=== PATIENT | female | born 1965 | race Caucasian/White ===

== ENCOUNTER → 2017-04-14 | Outpatient (CLI) | payer BC ==
[~2017-04-14] MED LIST: CALC1CAP8 PO; CHOL200024 PO; FERR-46 PO
[2017-04-14 16:30] LABS: HEMATOCRIT 37.4 % (34.6-47.8); HEMOGLOBIN 12.5 g/dL (11.7-16.4); WHITE BLOOD COUNT 8.2 x10^3/uL (3.4-10)
== END | disposition home or self-care (01) ==
LOC: STAR 15:26
PROVIDERS: ATTEND Specialist
DX: N39.3 Stress incontinence (female) (male) (principal)
CPT/HCPCS: 36415; 84703; 85025

== ENCOUNTER 2017-04-28 06:31 | Day surgery (SDC) | payer BC ==
[~2017-04-28] VITALS: Ht 175.3 cm; Wt 75.2 kg
[2017-04-28 06:55] VITALS: BP 108/72
[2017-04-28] MEDS ORDERED: ESTROGENS CONJUGATED VAG CRM 0.625MG/1G, 30GM ONE (07:01)
[2017-04-28 07:06] LABS: HCG UR LOT HCG7030192
[2017-04-28 07:09] LABS: HCG UR OBC PASS
[2017-04-28] MEDS: LACTATED RINGERS 1,000 ML IV SCH (07:13)
[2017-04-28] MEDS ORDERED: MIDAZOLAM 1 MG/ML, 2ML ONE (08:14)
[2017-04-28] MEDS ORDERED: FENTANYL PF 100 MCG/2ML ONE ×6 (08:14→12:02)
[2017-04-28] MEDS ORDERED: PROPOFOL 10 MG/ML, 20ML ONE (08:16)
[2017-04-28] MEDS ORDERED: ROCURONIUM 10 MG/ML ONE ×2 (08:17→08:34)
[2017-04-28] MEDS ORDERED: CEFOTETAN PMX 2GM/50ML 50 ML ONE (08:23)
[2017-04-28] MEDS ORDERED: ONDANSETRON 2MG/ML, 2ML ONE ×3 (08:45→18:23)
[2017-04-28] MEDS ORDERED: DEXAMETHASONE 4 MG/ML, 1ML ONE ×2 (08:45)
[2017-04-28] MEDS ORDERED: hydrALAzine 20 MG/ML, 1ML IV PRN (09:00)
[2017-04-28] MEDS ORDERED: ONDANSETRON 2MG/ML, 2ML IVPush PRN (09:00)
[2017-04-28] MEDS ORDERED: LABETALOL 5MG/ML, 20ML IV PRN (09:00)
[2017-04-28] MEDS ORDERED: PROMETHAZINE 25 MG/ML, 1ML IV PRN (09:00)
[2017-04-28] MEDS ORDERED: FENTANYL PF 100 MCG/2ML IV PRN (09:00)
[2017-04-28] MEDS ORDERED: HYDROmorphone 1 MG/ML, 1ML IV PRN (09:00)
[2017-04-28] MEDS ORDERED: OXYcodone 5 MG/5 ML ORAL.SOL UDC PO PRN (09:00)
[2017-04-28] MEDS: NEOMY/POLYMYXIN B GU IRR. 1 ML IRRIG ONE (09:15)
[2017-04-28] MEDS: THROMBIN 5,000 UNIT VIAL TP ONE (09:15)
[2017-04-28] MEDS: BUPIVACAINE/PF 0.25% ONE (09:15)
[2017-04-28] MEDS ORDERED: NEOSTIGMINE 1 MG/ML, 10ML ONE (09:31)
[2017-04-28] MEDS ORDERED: GLYCOPYRROLATE 0.4 MG/2 ML, 2ML ONE (09:31)
[2017-04-28] MEDS ORDERED: KETOROLAC 30 MG/1 ML ONE (11:08)
[2017-04-28] MEDS ORDERED: FLUORESCEIN SODIUM 500 MG/5 ML ONE (11:22)
[2017-04-28] MEDS ORDERED: MEPERIDINE/PF 25MG/0.5ML ONE (12:02)
[2017-04-28] MEDS ORDERED: ACETAMINOPHEN 650 MG/20.3 ML UDC ONE (12:02)
[2017-04-28] MEDS ORDERED: OXYcodone 5 MG/5 ML ORAL.SOL UDC ONE (12:02)
[2017-04-28] MEDS: MEPERIDINE/PF 25MG/0.5ML IVPush PRN (12:06)
[2017-04-28] MEDS: ACETAMINOPHEN 325 MG TABLET PO PRN (12:07)
[2017-04-28] MEDS: ONDANSETRON 2MG/ML, 2ML IVPush PRN (18:33)
== END 2017-04-28 18:45 ==
LOC: OUT 06:31
PROVIDERS: ATTEND Specialist
DX: D25.9 Leiomyoma of uterus, unspecified (principal); N39.3 Stress incontinence (female) (male); N80.1 Endometriosis of ovary; D64.9 Anemia, unspecified; Z87.440 Personal history of urinary (tract) infections; Z98.890 Other specified postprocedural states; Z87.01 Personal history of pneumonia (recurrent)
CPT/HCPCS: 57288; 58571; 81025; 88307; C1771; J1100; J1885; J2175; J2250; J2405; J2704; J2710; J3010; J3490; J7120; S0074